=== PATIENT | male | born 1990 | race Caucasian/White ===

== ENCOUNTER 2021-12-30 15:09 | Inpatient (IN) | payer MEDICAID ==
[~2021-12-30] VITALS: Ht 188 cm; Wt 100.7 kg
[~2021-12-30 15:09] MED LIST: SERT-158 PO
[2021-12-30] MEDS ORDERED: SODIUM CHLORIDE 0.9% 1,000 ML IV ONE (16:30)
[2021-12-30] MEDS ORDERED: KETAMINE HCL 50 MG/ML 10 ML VIAL IVP ONE (16:30)
[2021-12-30 16:34] LABS: BASOPHILS % (AUTO) 0.5 % (0.0-2.0); EOSINOPHILS % (AUTO) 0.3 % (1.0-6.0); HEMATOCRIT 37.5 % (41-53); HEMOGLOBIN 12.4 g/dL (13.5-17.5); LYMPHOCYTES % (AUTO) 22.6 % (22.0-44.0); MEAN CORPUSCULAR HEMOGLOBIN 31.6 pg (26.0-34.0); MEAN CORPUSCULAR VOLUME 96 fL (80-100); MONOCYTES # (AUTO) 0.5 K/uL (0.1-1.0); MONOCYTES % (AUTO) 5.6 % (2.0-9.0); NEUTROPHILS # (AUTO) 6.3 K/uL (1.8-7.7); PLATELET COUNT (AUTO) 281 K/uL (150-450); RED BLOOD CELL COUNT(AUTO) 3.92 MIL/uL (4.50-5.90); RED CELL DISTRIBUTION WIDTH 15.1 % (11.5-14.5)
[2021-12-30 16:44] LABS: ANION GAP 11 mmol/L (8-16); CALCIUM, TOTAL 8.2 mg/dL (8.8-10.5); CARBON DIOXIDE 26 mmol/L (22-29); CHLORIDE 99 mmol/L (98-107); CREATININE 1.19 mg/dL (0.60-1.30); GLOMERULAR FILTR. RATE CALC > 60 mL/min (>60); GLUCOSE,RANDOM 145 mg/dL (70-110); POTASSIUM 3.8 mmol/L (3.5-5.1); SODIUM SERUM 136 mmol/L (136-145); UREA NITROGEN, BLOOD 8 mg/dL (7-18)
[2021-12-30 16:59] LABS: AMPHET/METH SCREEN,URINE NEGATIVE (NEGATIVE); BARBITURATE SCREEN, URINE POSITIVE (NEGATIVE); BENZODIAZEPINES SCREEN,URINE POSITIVE (NEGATIVE); CANNABINOID SCREEN,URINE NEGATIVE (NEGATIVE); COCAINE SCREEN,URINE NEGATIVE (NEGATIVE); METHADONE SCREEN, URINE NEGATIVE (NEGATIVE); OPIATE SCREEN,URINE NEGATIVE (NEGATIVE); PHENCYCLIDINE SCREEN,URINE NEGATIVE (NEGATIVE)
[2021-12-30 17:09] LABS: ALANINE AMINOTRANSFERASE 144 U/L (12-78); ALBUMIN 4.1 g/dL (3.4-5.0); ALKALINE PHOSPHATASE 76 U/L (46-116); ASPARTATE AMINOTRANSFERASE 101 U/L (15-37); BILIRUBIN,TOTAL 0.2 mg/dL (0.1-1.0); CREATINE KINASE, TOTAL ONLY 230 U/L (39-308); TOTAL PROTEIN, SERUM 8.3 g/dL (6.4-8.2)
[2021-12-30] MEDS ORDERED: ONDANSETRON HCL 4 MG/2 ML VIAL IVP PRN (21:15)
[2021-12-30] MEDS ORDERED: ACETAMINOPHEN 325 MG TABLET PO PRN (21:15)
[2021-12-30] MEDS ORDERED: LORazepam 2 MG/ML VIAL IVP ONE (21:15)
[2021-12-30] MEDS ORDERED: LORazepam 2 MG/ML VIAL IVP PRN (21:15)
[2021-12-30 21:40] LABS: COVID AG,FIA SOURCE NASOPHARYNGEAL
[2021-12-30] MEDS ORDERED: LORazepam 2 MG TABLET PO PRN (21:45)
[2021-12-30] MEDS: ONDANSETRON HCL 4 MG/2 ML VIAL IVP PRN (21:49)
[2021-12-30] MEDS: LORazepam 2 MG/ML VIAL IVP PRN (21:49)
[2021-12-30] MEDS: 1: MAGNESIUM SULFATE 2 GM, MVI, ADULT NO.1 WITH VIT K 10 ML, THIAMINE 100 MG, FOLIC ACID IV SCH ×5 (22:00)
[2021-12-31 00:01] VITALS: BP 124/55
[2021-12-31] MEDS: LORazepam 2 MG TABLET PO SCH ×2 (00:02→04:03)
[2021-12-31] MEDS: LORazepam 2 MG/ML VIAL IVP PRN ×5 (02:15→20:24)
[2021-12-31] MEDS ORDERED: DEXMEDETOMIDINE HCL 200 MCG in SODIUM CHLORIDE 0.9% 48 ML IV PRN (02:30)
[2021-12-31] MEDS ORDERED: DEXMEDETOMIDINE HCL 400 MCG in SODIUM CHLORIDE 0.9% 96 ML IV PRN (02:45)
[2021-12-31] MEDS: ETHYL ALCOHOL 62% ANTISEPTIC NASAL SANITIZER 0.6 ML AMPUL NASAL SCH ×2 (05:12→20:24)
[2021-12-31 07:17] LABS: BASOPHILS % (AUTO) 0.8 % (0.0-2.0); EOSINOPHILS % (AUTO) 1.5 % (1.0-6.0); HEMATOCRIT 32.5 % (41-53); HEMOGLOBIN 11.2 g/dL (13.5-17.5); LYMPHOCYTES # (AUTO) 1.2 K/uL (1.0-4.8); LYMPHOCYTES % (AUTO) 30.5 % (22.0-44.0); MEAN CORPUSCULAR HEMOGLOBIN 32.2 pg (26.0-34.0); MEAN CORPUSCULAR HGB CONC 34.4 G/dL (31.0-37.0); MEAN CORPUSCULAR VOLUME 94 fL (80-100); MONOCYTES # (AUTO) 0.4 K/uL (0.1-1.0); MONOCYTES % (AUTO) 8.9 % (2.0-9.0); NEUTROPHILS # (AUTO) 2.3 K/uL (1.8-7.7); NEUTROPHILS % (AUTO) 58.3 % (40.0-70.0); PLATELET COUNT (AUTO) 174 K/uL (150-450); RED BLOOD CELL COUNT(AUTO) 3.48 MIL/uL (4.50-5.90); RED CELL DISTRIBUTION WIDTH 14.9 % (11.5-14.5)
[2021-12-31 07:32] LABS: ALANINE AMINOTRANSFERASE 104 U/L (12-78); ALBUMIN 3.2 g/dL (3.4-5.0); ALKALINE PHOSPHATASE 59 U/L (46-116); ANION GAP 10 mmol/L (8-16); ASPARTATE AMINOTRANSFERASE 68 U/L (15-37); BILIRUBIN,TOTAL 0.3 mg/dL (0.1-1.0); CARBON DIOXIDE 27 mmol/L (22-29); CHLORIDE 101 mmol/L (98-107); GLOMERULAR FILTR. RATE CALC > 60 mL/min (>60); GLUCOSE,RANDOM 96 mg/dL (70-110); POTASSIUM 3.4 mmol/L (3.5-5.1); SODIUM SERUM 138 mmol/L (136-145); TOTAL PROTEIN, SERUM 6.7 g/dL (6.4-8.2); UREA NITROGEN, BLOOD 7 mg/dL (7-18)
[2021-12-31] MEDS: LORazepam 2 MG TABLET PO PRN ×2 (07:52→10:40)
[2021-12-31] MEDS ORDERED: SODIUM CHLORIDE 0.9% 1,000 ML ONE (08:20)
[2021-12-31] MEDS: ENOXAPARIN SODIUM 40 MG/0.4 ML PF SYRINGE SQ SCH (08:22)
[2021-12-31] MEDS: 1: MAGNESIUM SULFATE 2 GM, MVI, ADULT NO.1 WITH VIT K 10 ML, THIAMINE 100 MG, FOLIC ACID IV SCH ×10 (08:23→18:46)
[2021-12-31] MEDS: ONDANSETRON HCL 4 MG/2 ML VIAL IVP PRN (11:34)
[2021-12-31] MEDS: PANTOPRAZOLE SODIUM 40 MG DR TABLET PO SCH (11:57)
[2021-12-31] MEDS ORDERED: HALOPERIDOL LACTATE 5 MG/ML VIAL IVP PRN (12:00)
[2021-12-31] MEDS ORDERED: LORazepam 2 MG/ML VIAL IVP ONE (12:00)
[2021-12-31 15:51] VITALS: BP 110/45
[2021-12-31 20:02] VITALS: BP 109/63
[2021-12-31 23:53] VITALS: BP 105/54
[2022-01-01] MEDS: LORazepam 2 MG/ML VIAL IVP PRN ×5 (00:41→21:29)
[2022-01-01] MEDS ORDERED: SODIUM CHLORIDE 0.9% 1,000 ML ONE (03:49)
[2022-01-01 04:38] VITALS: BP 104/59
[2022-01-01] MEDS: 1: MAGNESIUM SULFATE 2 GM, MVI, ADULT NO.1 WITH VIT K 10 ML, THIAMINE 100 MG, FOLIC ACID IV SCH ×10 (06:07→15:09)
[2022-01-01] MEDS: PANTOPRAZOLE SODIUM 40 MG DR TABLET PO SCH (08:15)
[2022-01-01] MEDS: ETHYL ALCOHOL 62% ANTISEPTIC NASAL SANITIZER 0.6 ML AMPUL NASAL SCH ×2 (08:15→21:33)
[2022-01-01] MEDS: ENOXAPARIN SODIUM 40 MG/0.4 ML PF SYRINGE SQ SCH (08:15)
[2022-01-01] MEDS: ACETAMINOPHEN 325 MG TABLET PO PRN ×2 (08:15→22:05)
[2022-01-01 08:23] LABS: BASOPHILS % (AUTO) 0.6 % (0.0-2.0); EOSINOPHILS % (AUTO) 2.1 % (1.0-6.0); HEMATOCRIT 34.4 % (41-53); HEMOGLOBIN 11.6 g/dL (13.5-17.5); LYMPHOCYTES % (AUTO) 29.6 % (22.0-44.0); MEAN CORPUSCULAR HEMOGLOBIN 32.2 pg (26.0-34.0); MEAN CORPUSCULAR HGB CONC 33.7 G/dL (31.0-37.0); MEAN CORPUSCULAR VOLUME 95 fL (80-100); MONOCYTES # (AUTO) 0.4 K/uL (0.1-1.0); MONOCYTES % (AUTO) 10.3 % (2.0-9.0); NEUTROPHILS % (AUTO) 57.4 % (40.0-70.0); PLATELET COUNT (AUTO) 159 K/uL (150-450); RED CELL DISTRIBUTION WIDTH 15.2 % (11.5-14.5)
[2022-01-01 08:49] LABS: ALANINE AMINOTRANSFERASE 80 U/L (12-78); ALKALINE PHOSPHATASE 56 U/L (46-116); ANION GAP 8 mmol/L (8-16); ASPARTATE AMINOTRANSFERASE 42 U/L (15-37); BILIRUBIN,TOTAL 0.3 mg/dL (0.1-1.0); CALCIUM, TOTAL 8.1 mg/dL (8.8-10.5); CARBON DIOXIDE 28 mmol/L (22-29); CHLORIDE 102 mmol/L (98-107); CREATININE 0.71 mg/dL (0.60-1.30); GLOMERULAR FILTR. RATE CALC > 60 mL/min (>60); GLUCOSE,RANDOM 91 mg/dL (70-110); POTASSIUM 3.4 mmol/L (3.5-5.1); SODIUM SERUM 138 mmol/L (136-145); TOTAL PROTEIN, SERUM 6.4 g/dL (6.4-8.2); UREA NITROGEN, BLOOD 7 mg/dL (7-18)
[2022-01-01 09:34] VITALS: BP 138/77
[2022-01-01 12:27] VITALS: BP 126/58
[2022-01-01 16:54] VITALS: BP 111/53
[2022-01-01 20:19] VITALS: BP 107/52
[2022-01-01 23:18] VITALS: BP 103/60
[2022-01-02] MEDS ORDERED: SODIUM CHLORIDE 0.9% 1,000 ML ONE (00:37)
[2022-01-02] MEDS ORDERED: SODIUM CHLORIDE 0.9% 100 ML ONE (00:37)
[2022-01-02] MEDS: 1: MAGNESIUM SULFATE 2 GM, MVI, ADULT NO.1 WITH VIT K 10 ML, THIAMINE 100 MG, FOLIC ACID IV SCH ×5 (00:43)
[2022-01-02 03:38] VITALS: BP 108/55
[2022-01-02] MEDS ORDERED: LORazepam 1 MG TABLET PO PRN (07:00)
[2022-01-02] MEDS: ENOXAPARIN SODIUM 40 MG/0.4 ML PF SYRINGE SQ SCH (07:46)
[2022-01-02] MEDS: LORazepam 2 MG/ML VIAL IVP PRN (07:46)
[2022-01-02] MEDS: PANTOPRAZOLE SODIUM 40 MG DR TABLET PO SCH (07:46)
[2022-01-02] MEDS: ETHYL ALCOHOL 62% ANTISEPTIC NASAL SANITIZER 0.6 ML AMPUL NASAL SCH (07:46)
[2022-01-02] MEDS ORDERED: LORazepam 1 MG TABLET PO SCH (09:00)
[2022-01-02 10:21] VITALS: BP 123/72
[2022-01-03] MEDS ORDERED: LORazepam 1 MG TABLET PO PRN (07:00)
== END 2022-01-02 11:00 | disposition left against medical advice (07) | DRG 280 ==
LOC: EDBD 15:12 → EMS 15:12 → MERGE 21:16 → 5S 21:16 → ICU 12-31 02:45 → 5S 12-31 15:40
PROVIDERS: ADMIT Internal Medicine; ATTEND Internal Medicine
DX: K70.10 Alcoholic hepatitis without ascites (principal); F10.221 Alcohol dependence with intoxication delirium; F10.231 Alcohol dependence with withdrawal delirium; I10 Essential (primary) hypertension; Y90.8 Blood alcohol level of 240 mg/100 ml or more; Z20.822 Contact with and (suspected) exposure to COVID-19; Z53.29 Procedure and treatment not carried out because of patient's decision for other reasons
CPT/HCPCS: 51701; 70450; 80048; 80053; 80076; 82550; 83735; 85025; 87081; 99291; G0378; G0480; J1650; J2060; J2405; J3411; J3475; J3490; J7030; J7050; Q9967

== ENCOUNTER 2022-09-06 21:45 | Emergency (ER) | payer MEDICAID ==
[~2022-09-06] VITALS: Ht 188 cm; Wt 106.0 kg
[2022-09-06] MEDS: ChlordiazePOXIDE HCL 25 MG CAPSULE PO ONE ×2 (23:15→23:39)
[2022-09-06] MEDS ORDERED: LORazepam 2 MG/ML VIAL IVP ONE (23:15)
[2022-09-06] MEDS ORDERED: MAGNESIUM SULFATE 2 GM, MVI, ADULT NO.1 WITH VIT K 10 ML, THIAMINE 100 MG, FOLIC ACID 1... IV ONE ×5 (23:15)
[2022-09-06] MEDS ORDERED: DIAZEPAM 5 MG/ML 2 ML SYRINGE IM ONE (23:45)
[2022-09-06 23:51] LABS: ANION GAP 14 mmol/L (8-16); CARBON DIOXIDE 28 mmol/L (22-29); CHLORIDE 104 mmol/L (98-107); CREATININE 0.97 mg/dL (0.60-1.30); GLOMERULAR FILTR. RATE CALC > 60 mL/min (>60); GLUCOSE,RANDOM 101 mg/dL (70-110); POTASSIUM 4.2 mmol/L (3.5-5.1); SODIUM SERUM 146 mmol/L (136-145); UREA NITROGEN, BLOOD 9 mg/dL (7-18)
[2022-09-06 23:57] LABS: ALANINE AMINOTRANSFERASE 72 U/L (12-78); ALBUMIN 4.3 g/dL (3.4-5.0); ALKALINE PHOSPHATASE 73 U/L (46-116); ASPARTATE AMINOTRANSFERASE 58 U/L (15-37); BILIRUBIN,TOTAL 0.2 mg/dL (0.1-1.0); TOTAL PROTEIN, SERUM 8.5 g/dL (6.4-8.2)
[2022-09-07] MEDS ORDERED: ONDANSETRON HCL 4 MG/2 ML VIAL IVP ONE (02:00)
[2022-09-07] MEDS ORDERED: LIB25 PO (05:03)
[2022-09-07 06:06] VITALS: BP 101/97
== END 2022-09-07 07:18 | disposition home or self-care (01) ==
LOC: EMS 21:49
DX: F10.229 Alcohol dependence with intoxication, unspecified (principal); F32.A Depression, unspecified; I10 Essential (primary) hypertension; Y90.8 Blood alcohol level of 240 mg/100 ml or more
CPT/HCPCS: 99285; 80053; 83735; 36415; 93005; 96372; 96365; 96375; G0480; J1885; J3490 ×2; J3411; J3475; J7030; J2060; J2405

== ENCOUNTER 2023-08-18 12:46 | Inpatient (IN) | payer MEDICAID, OTHER ==
[~2023-08-18] VITALS: Ht 190.5 cm; Wt 105.2 kg
[2023-08-18] MEDS ORDERED: MIRT-149 PO (13:07)
[2023-08-18] MEDS ORDERED: HYDR-4808 PO (13:07)
[2023-08-18] MEDS ORDERED: GABA-1201 PO (13:07)
[2023-08-18] MEDS ORDERED: LORazepam 2 MG/ML VIAL IVP ONE (13:15)
[2023-08-18] MEDS ORDERED: SODIUM CHLORIDE 0.9% 1,000 ML IV ONE (13:15)
[2023-08-18] MEDS ORDERED: LevETIRAcetam 1,000 MG in DEXTROSE 5%-WATER 100 ML IV ONE (13:15)
[2023-08-18] MEDS ORDERED: ZOLPIDEM TARTRATE 10 MG TABLET PO PRN (13:45)
[2023-08-18 14:03] LABS: BASOPHILS % (AUTO) 0.5 % (0.0-2.0); EOSINOPHILS % (AUTO) 0.2 % (1.0-6.0); HEMATOCRIT 36.2 % (41-53); HEMOGLOBIN 12.3 g/dL (13.5-17.5); LYMPHOCYTES # (AUTO) 1.9 K/uL (1.0-4.8); LYMPHOCYTES % (AUTO) 49.7 % (22.0-44.0); MEAN CORPUSCULAR HGB CONC 33.9 G/dL (31.0-37.0); MEAN CORPUSCULAR VOLUME 89 fL (80-100); MONOCYTES # (AUTO) 0.2 K/uL (0.1-1.0); MONOCYTES % (AUTO) 6.6 % (2.0-9.0); NEUTROPHILS # (AUTO) 1.6 K/uL (1.8-7.7); PLATELET COUNT (AUTO) 317 K/uL (150-450); RED BLOOD CELL COUNT(AUTO) 4.09 MIL/uL (4.50-5.90); RED CELL DISTRIBUTION WIDTH 18.5 % (11.5-14.5); WHITE BLOOD COUNT (AUTO) 3.7 K/uL (4.5-11.0)
[2023-08-18 14:13] LABS: ANION GAP 8 mmol/L (8-16); CARBON DIOXIDE 31 mmol/L (22-29); CHLORIDE 100 mmol/L (98-107); CREATININE 0.91 mg/dL (0.60-1.30); GLOMERULAR FILTR. RATE CALC > 60 mL/min (>60); GLUCOSE,RANDOM 110 mg/dL (70-110); POTASSIUM 3.5 mmol/L (3.5-5.1); SODIUM SERUM 139 mmol/L (136-145); UREA NITROGEN, BLOOD 9 mg/dL (7-18)
[2023-08-18 14:18] LABS: ALCOHOL, BLOOD (SERUM) 348 mg/dL (0-10)
[2023-08-18 14:19] LABS: APPEARANCE,URINE CLEAR (CLEAR); BILIRUBIN,URINE NEGATIVE (NEGATIVE); COLOR,URINE COLORLESS (YELLOW); GLUCOSE, URINE (UA) NEGATIVE (NEGATIVE); KETONES,URINE NEGATIVE (NEGATIVE); LEUKOCYTE ESTERASE ,URINE NEGATIVE (NEGATIVE); NITRATE,URINE NEGATIVE (NEGATIVE); OCCULT BLOOD,URINE NEGATIVE (NEGATIVE); PROTEIN,URINE NEGATIVE (NEGATIVE); SPECIFIC GRAVITIY, URINE 1.004 (1.003-1.030); UROBILINOGEN,URINE <=1.0 mg/dL (<=1.0)
[2023-08-18 14:24] LABS: COVID AG,FIA SOURCE NASAL SWAB
[2023-08-18 14:28] LABS: LACTIC ACID 1.8 mmol/L (0.4-2.0)
[2023-08-18 14:37] LABS: ALANINE AMINOTRANSFERASE 34 U/L (12-78); ALBUMIN 3.9 g/dL (3.4-5.0); ALKALINE PHOSPHATASE 65 U/L (46-116); ASPARTATE AMINOTRANSFERASE 33 U/L (15-37); BILIRUBIN,TOTAL 0.4 mg/dL (0.1-1.0); CREATINE KINASE, TOTAL ONLY 235 U/L (39-308); TOTAL PROTEIN, SERUM 8.3 g/dL (6.4-8.2)
[2023-08-18 14:43] LABS: SARS-COV2 (COVID) ANTIGEN,FIA Negative (Negative)
[2023-08-18] MEDS: LORazepam 2 MG TABLET PO PRN (16:23)
[2023-08-18] MEDS ORDERED: SODIUM CHLORIDE 0.9% 2,000 ML IV ONE (17:15)
[2023-08-18] MEDS: HALOPERIDOL 5 MG TABLET PO PRN (17:57)
[2023-08-18] MEDS ORDERED: HALOPERIDOL LACTATE 5 MG/ML VIAL IM ONE (18:15)
[2023-08-18] MEDS ORDERED: LORazepam 2 MG/ML VIAL IM ONE (18:15)
[2023-08-18] MEDS ORDERED: DiphenhydrAMINE HCL 50 MG/ML VIAL IM ONE (18:15)
[2023-08-18 18:33] LABS: AMPHET/METH SCREEN,URINE NEGATIVE (NEGATIVE); BARBITURATE SCREEN, URINE POSITIVE (NEGATIVE); BENZODIAZEPINES SCREEN,URINE NEGATIVE (NEGATIVE); CANNABINOID SCREEN,URINE NEGATIVE (NEGATIVE); COCAINE SCREEN,URINE NEGATIVE (NEGATIVE); METHADONE SCREEN, URINE NEGATIVE (NEGATIVE); OPIATE SCREEN,URINE NEGATIVE (NEGATIVE); PHENCYCLIDINE SCREEN,URINE NEGATIVE (NEGATIVE)
[2023-08-18 18:44] LABS: ALCOHOL, URINE DRUG SCREEN POSITIVE (NEGATIVE)
[2023-08-19 00:15] VITALS: BP 125/76; PULSE 83; RESP 18; TEMP 98.2
[2023-08-19 01:21] VITALS: BP 125/76; PULSE 83; RESP 18; TEMP 98.2; O2SAT 99
[2023-08-19] MEDS ORDERED: OMEPRAZOLE 20 MG CAPSULE PO PRN (07:00)
[2023-08-19] MEDS ORDERED: MAGNESIUM HYDROXIDE SUSPENSION 30 ML UDCUP PO PRN (07:00)
[2023-08-19] MEDS ORDERED: CloNIDine HCL 0.1 MG TABLET PO PRN (07:00)
[2023-08-19] MEDS ORDERED: BACITRACIN 28 GM OINTMENT TP PRN (07:00)
[2023-08-19] MEDS ORDERED: IBUPROFEN 600 MG TABLET PO PRN (07:00)
[2023-08-19] MEDS ORDERED: MAG HYDROX/ALUMINUM HYD/SIMETH ES 30 ML SUSPENSION UDCUP PO PRN (07:00)
[2023-08-19] MEDS ORDERED: ONDANSETRON HCL 4 MG TABLET PO PRN (07:00)
[2023-08-19] MEDS ORDERED: BENZOCAINE/MENTHOL LOZENGE PO PRN (07:00)
[2023-08-19] MEDS ORDERED: ACETAMINOPHEN 325 MG TABLET PO PRN (07:00)
[2023-08-19] MEDS ORDERED: PETROLATUM,WHITE 28 GM JELLY TP PRN (07:00)
[2023-08-19] MEDS ORDERED: LOPERAMIDE HCL 2 MG CAPSULE PO PRN (07:00)
[2023-08-19] MEDS ORDERED: DOCUSATE SODIUM 100 MG CAPSULE PO PRN (07:00)
[2023-08-19] MEDS ORDERED: ALBUTEROL SULFATE HFA 90 MCG/PUFF 8 GM INHALER IH PRN (07:00)
[2023-08-19] MEDS: GABAPENTIN 400 MG CAPSULE PO SCH ×2 (08:43→16:56)
[2023-08-19] MEDS: LevETIRAcetam 500 MG TABLET PO SCH ×2 (08:43→16:56)
[2023-08-19 09:44] VITALS: BP 133/74; PULSE 70; RESP 18; TEMP 98.5; O2SAT 100
[2023-08-19] MEDS: CITALOPRAM HYDROBROMIDE 20 MG TABLET PO SCH (11:03)
[2023-08-19] MEDS: LORazepam 2 MG TABLET PO PRN ×2 (11:04→15:12)
[2023-08-19] MEDS: HALOPERIDOL 5 MG TABLET PO PRN (17:37)
[2023-08-19] MEDS ORDERED: LORazepam 2 MG/ML VIAL IM ONE (19:00)
[2023-08-19] MEDS ORDERED: HALOPERIDOL LACTATE 5 MG/ML VIAL IM ONE (19:00)
[2023-08-19 19:15] VITALS: RESP 18
[2023-08-19 20:00] VITALS: RESP 18
[2023-08-19] MEDS: OLANZapine 5 MG TABLET PO SCH (21:00)
[2023-08-19 21:16] VITALS: TEMP 97.7
[2023-08-20] MEDS: HALOPERIDOL 5 MG TABLET PO PRN ×2 (07:55→13:57)
[2023-08-20] MEDS: LORazepam 2 MG TABLET PO PRN ×2 (07:55→13:57)
[2023-08-20] MEDS: LevETIRAcetam 500 MG TABLET PO SCH ×2 (07:55→16:18)
[2023-08-20] MEDS: GABAPENTIN 400 MG CAPSULE PO SCH ×2 (07:56→16:18)
[2023-08-20] MEDS: CITALOPRAM HYDROBROMIDE 20 MG TABLET PO SCH (07:56)
[2023-08-20 08:00] VITALS: BP 119/69; PULSE 63; RESP 18; TEMP 98.2
[2023-08-20 09:30] VITALS: BP 119/69; PULSE 63; RESP 17; TEMP 98.2
[2023-08-20] MEDS ORDERED: LORazepam 2 MG/ML VIAL IM ONE ×3 (09:30→19:00)
[2023-08-20] MEDS ORDERED: DiphenhydrAMINE HCL 50 MG/ML VIAL IM ONE (09:30)
[2023-08-20] MEDS ORDERED: HALOPERIDOL LACTATE 5 MG/ML VIAL IM ONE ×3 (09:30→19:00)
[2023-08-20 10:30] VITALS: BP 121/76; PULSE 71; RESP 17; TEMP 98
[2023-08-20 15:08] VITALS: BP 110/46; PULSE 69; RESP 18
[2023-08-20] MEDS: OLANZapine 5 MG TABLET PO SCH (20:18)
[2023-08-20 21:23] VITALS: BP 136/89; PULSE 95; RESP 18; TEMP 98.1
[2023-08-21] MEDS: LevETIRAcetam 500 MG TABLET PO SCH ×3 (08:25→16:12)
[2023-08-21] MEDS: CITALOPRAM HYDROBROMIDE 20 MG TABLET PO SCH (08:25)
[2023-08-21] MEDS: GABAPENTIN 400 MG CAPSULE PO SCH ×3 (08:25→16:12)
[2023-08-21] MEDS: LORazepam 2 MG TABLET PO PRN (08:25)
[2023-08-21] MEDS: HALOPERIDOL 5 MG TABLET PO PRN (08:25)
[2023-08-21 09:55] VITALS: BP 123/64; PULSE 71; RESP 19; TEMP 98.2
[2023-08-21] MEDS ORDERED: CITA-144 PO (14:23)
[2023-08-21] MEDS ORDERED: LEVE500T20 PO (14:23)
== END 2023-08-21 16:10 | disposition home or self-care (01) | DRG 750 ==
LOC: EMS 12:47 → UNDOADMIN 08-19 00:03 → 3EI 08-19 00:03
PROVIDERS: ADMIT Psychiatry & Neurology Psychiatry; ATTEND Psychiatry & Neurology Psychiatry
DX: F25.9 Schizoaffective disorder, unspecified (principal); G40.909 Epilepsy, unspecified, not intractable, without status epilepticus; F10.139 Alcohol abuse with withdrawal, unspecified; F41.9 Anxiety disorder, unspecified; G47.00 Insomnia, unspecified; F11.10 Opioid abuse, uncomplicated; Z20.822 Contact with and (suspected) exposure to COVID-19; I10 Essential (primary) hypertension; K59.00 Constipation, unspecified; T14.91XA Suicide attempt, initial encounter; X83.8XXA Intentional self-harm by other specified means, initial encounter; Y93.89 Activity, other specified; Y92.89 Other specified places as the place of occurrence of the external cause; Y99.8 Other external cause status; Z72.0 Tobacco use
CPT/HCPCS: 71045; 80053; 80307; 81003; 82550; 83605; 85025; 93005; 99291; G0480; J0712; J1200; J1630; J2060; J7030; J7060; Q0162; 36415-L1; 36415-TC

== ENCOUNTER 2023-09-08 15:09 | Inpatient (IN) | payer MEDICAID, OTHER ==
[~2023-09-08] VITALS: Ht 185.4 cm; Wt 106.3 kg
[~2023-09-08 15:09] MED LIST changes: +CITA-144 PO; +GABA-1201 PO; +LEVE500T20 PO; -SERT-158 PO
[2023-09-08 15:48] LABS: EOSINOPHILS % (AUTO) 1.1 % (1.0-6.0); HEMATOCRIT 38.6 % (41-53); LYMPHOCYTES # (AUTO) 2.1 K/uL (1.0-4.8); LYMPHOCYTES % (AUTO) 55.5 % (22.0-44.0); MEAN CORPUSCULAR HEMOGLOBIN 29.9 pg (26.0-34.0); MEAN CORPUSCULAR HGB CONC 33.7 G/dL (31.0-37.0); MEAN CORPUSCULAR VOLUME 89 fL (80-100); MONOCYTES # (AUTO) 0.2 K/uL (0.1-1.0); MONOCYTES % (AUTO) 6.4 % (2.0-9.0); NEUTROPHILS # (AUTO) 1.4 K/uL (1.8-7.7); PLATELET COUNT (AUTO) 248 K/uL (150-450); RED BLOOD CELL COUNT(AUTO) 4.34 MIL/uL (4.50-5.90); RED CELL DISTRIBUTION WIDTH 18.5 % (11.5-14.5); WHITE BLOOD COUNT (AUTO) 3.9 K/uL (4.5-11.0)
[2023-09-08 16:03] LABS: ALCOHOL, BLOOD (SERUM) 448 mg/dL (0-10); ANION GAP 10 mmol/L (8-16); CALCIUM, TOTAL 8.7 mg/dL (8.8-10.5); CARBON DIOXIDE 30 mmol/L (22-29); CHLORIDE 101 mmol/L (98-107); CREATININE 0.94 mg/dL (0.60-1.30); GLOMERULAR FILTR. RATE CALC > 60 mL/min (>60); GLUCOSE,RANDOM 122 mg/dL (70-110); POTASSIUM 3.4 mmol/L (3.5-5.1); SODIUM SERUM 141 mmol/L (136-145); UREA NITROGEN, BLOOD 9 mg/dL (7-18)
[2023-09-08 16:10] LABS: ALANINE AMINOTRANSFERASE 31 U/L (12-78); ALBUMIN 4.2 g/dL (3.4-5.0); ALKALINE PHOSPHATASE 62 U/L (46-116); ASPARTATE AMINOTRANSFERASE 29 U/L (15-37); BILIRUBIN,TOTAL 0.3 mg/dL (0.1-1.0); TOTAL PROTEIN, SERUM 8.8 g/dL (6.4-8.2)
[2023-09-08] MEDS: ChlordiazePOXIDE HCL 25 MG CAPSULE PO ONE ×2 (18:30→19:23)
[2023-09-08] MEDS ORDERED: HALOPERIDOL 5 MG TABLET PO PRN (18:45)
[2023-09-08] MEDS ORDERED: ZOLPIDEM TARTRATE 10 MG TABLET PO PRN (18:45)
[2023-09-08] MEDS ORDERED: LORazepam 2 MG/ML VIAL IM ONE (20:00)
[2023-09-08] MEDS ORDERED: DiphenhydrAMINE HCL 50 MG/ML VIAL IM ONE (20:00)
[2023-09-08] MEDS ORDERED: HALOPERIDOL LACTATE 5 MG/ML VIAL IM ONE (20:00)
[2023-09-08] MEDS ORDERED: LevETIRAcetam 500 MG TABLET PO ONE (20:30)
[2023-09-08] MEDS ORDERED: POTASSIUM CHLORIDE 10% 40 MEQ/30 ML LIQUID UDCUP PO ONE (22:00)
[2023-09-09] MEDS: LORazepam 2 MG TABLET PO PRN ×3 (04:09→18:41)
[2023-09-09 04:14] LABS: COVID AG,FIA SOURCE NASAL SWAB
[2023-09-09 04:21] LABS: SARS-COV2 (COVID) ANTIGEN,FIA Negative (Negative)
[2023-09-09] MEDS ORDERED: LevETIRAcetam 500 MG TABLET PO ONE (09:00)
[2023-09-09 11:37] VITALS: BP 139/85; PULSE 100; RESP 18; TEMP 97.8; O2SAT 98
[2023-09-09] MEDS ORDERED: INFLUENZA VIRUS VACCINE QVS 2023-24 (6MO+)/PF 60 MCG/0.5 ML SYRINGE IM. ONE (12:15)
[2023-09-09] MEDS ORDERED: PNEUMOCOCCAL VACCINE POLYVALENT 0.5 ML SYRINGE [PPSV23] IM. ONE (12:15)
[2023-09-09] MEDS: CITALOPRAM HYDROBROMIDE 20 MG TABLET PO SCH (13:01)
[2023-09-09] MEDS ORDERED: ACETAMINOPHEN 325 MG TABLET PO PRN (14:00)
[2023-09-09] MEDS ORDERED: ONDANSETRON HCL 4 MG TABLET PO PRN (14:00)
[2023-09-09] MEDS ORDERED: MAGNESIUM HYDROXIDE SUSPENSION 30 ML UDCUP PO PRN (14:00)
[2023-09-09] MEDS ORDERED: BENZOCAINE/MENTHOL LOZENGE PO PRN (14:00)
[2023-09-09] MEDS ORDERED: DOCUSATE SODIUM 100 MG CAPSULE PO PRN (14:00)
[2023-09-09] MEDS ORDERED: ALBUTEROL SULFATE HFA 90 MCG/PUFF 8 GM INHALER IH PRN (14:00)
[2023-09-09] MEDS ORDERED: PETROLATUM,WHITE 28 GM JELLY TP PRN (14:00)
[2023-09-09] MEDS ORDERED: OMEPRAZOLE 20 MG CAPSULE PO PRN (14:00)
[2023-09-09] MEDS ORDERED: LOPERAMIDE HCL 2 MG CAPSULE PO PRN (14:00)
[2023-09-09] MEDS ORDERED: IBUPROFEN 600 MG TABLET PO PRN (14:00)
[2023-09-09] MEDS ORDERED: CloNIDine HCL 0.1 MG TABLET PO PRN (14:00)
[2023-09-09] MEDS ORDERED: MAG HYDROX/ALUMINUM HYD/SIMETH ES 30 ML SUSPENSION UDCUP PO PRN (14:00)
[2023-09-09] MEDS ORDERED: BACITRACIN 28 GM OINTMENT TP PRN (14:00)
[2023-09-09] MEDS: GABAPENTIN 400 MG CAPSULE PO SCH (17:25)
[2023-09-09] MEDS: LevETIRAcetam 500 MG TABLET PO SCH (17:26)
[2023-09-09] MEDS ORDERED: OLANZapine 5 MG TABLET PO SCH (21:00)
[2023-09-09 21:23] VITALS: TEMP 97
[2023-09-10] MEDS: CITALOPRAM HYDROBROMIDE 20 MG TABLET PO SCH (08:41)
[2023-09-10] MEDS: LevETIRAcetam 500 MG TABLET PO SCH (08:41)
[2023-09-10] MEDS: GABAPENTIN 400 MG CAPSULE PO SCH (08:42)
[2023-09-10 08:49] VITALS: BP 107/67; PULSE 102; RESP 18; TEMP 98.2; O2SAT 99
[2023-09-10] MEDS: LORazepam 2 MG TABLET PO PRN ×2 (08:50→12:51)
[2023-09-10] MEDS ORDERED: OLAN5TAB52 PO (14:09)
== END 2023-09-10 14:45 | disposition home or self-care (01) | DRG 754 ==
LOC: EMS 15:25 → 3EC 09-09 00:38
PROVIDERS: ADMIT Psychiatry & Neurology Psychiatry; ATTEND Psychiatry & Neurology Psychiatry
DX: F32.9 Major depressive disorder, single episode, unspecified (principal); G40.909 Epilepsy, unspecified, not intractable, without status epilepticus; K74.60 Unspecified cirrhosis of liver; R45.851 Suicidal ideations; F10.229 Alcohol dependence with intoxication, unspecified; G47.00 Insomnia, unspecified; F41.9 Anxiety disorder, unspecified; Z20.822 Contact with and (suspected) exposure to COVID-19; K59.00 Constipation, unspecified; I10 Essential (primary) hypertension; E87.6 Hypokalemia; Z79.899 Other long term (current) drug therapy
CPT/HCPCS: 80053; 85025; 99285; G0480; J1200; J1630; J2060

== ENCOUNTER 2023-10-18 01:58 | Emergency (ER) | payer MEDICAID, OTHER ==
[~2023-10-18] VITALS: Ht 188 cm; Wt 105.0 kg
[~2023-10-18 01:58] MED LIST changes: +OLAN5TAB52 PO
[2023-10-18 02:01] VITALS: BP 118/73; PULSE 100; RESP 16; TEMP 98.2
== END 2023-10-18 05:59 | disposition left against medical advice (07) ==
LOC: EMS 01:59
DX: Z53.21 Procedure and treatment not carried out due to patient leaving prior to being seen by health care provider (principal)
CPT/HCPCS: 99281; Z7502

== ENCOUNTER 2024-11-17 13:21 | Inpatient (IN) | payer OTHER ==
[~2024-11-17] VITALS: Ht 190.5 cm; Wt 109.1 kg
[~2024-11-17 13:21] MED LIST changes: +LEVE-71 PO; -LEVE500T20 PO
[2024-11-17] MEDS ORDERED: ACETAMINOPHEN 325 MG TABLET PO PRN (15:15)
[2024-11-17] MEDS ORDERED: MAGNESIUM HYDROXIDE SUSPENSION 30 ML UDCUP PO PRN (15:15)
[2024-11-17] MEDS: ChlordiazePOXIDE HCL 25 MG CAPSULE PO ONE (15:26)
[2024-11-17] MEDS ORDERED: LORazepam 2 MG/ML VIAL IVP PRN (15:30)
[2024-11-17 15:50] LABS: ANION GAP 4 mmol/L (8-16); CALCIUM, TOTAL 8.2 mg/dL (8.8-10.5); CARBON DIOXIDE 31 mmol/L (22-29); CHLORIDE 105 mmol/L (98-107); CREATININE 0.85 mg/dL (0.60-1.30); GLOMERULAR FILTR. RATE CALC > 60 mL/min (>60); GLUCOSE,RANDOM 112 mg/dL (70-110); SODIUM SERUM 140 mmol/L (136-145); UREA NITROGEN, BLOOD 12 mg/dL (7-18)
[2024-11-17 15:53] LABS: ALCOHOL, BLOOD (SERUM) 240 mg/dL (0-10)
[2024-11-17 15:56] LABS: ALANINE AMINOTRANSFERASE 33 U/L (12-78); ALBUMIN 3.4 g/dL (3.4-5.0); ALKALINE PHOSPHATASE 58 U/L (46-116); ASPARTATE AMINOTRANSFERASE 22 U/L (15-37); BILIRUBIN,TOTAL 0.2 mg/dL (0.1-1.0); LIPASE 37 U/L (16-77); TOTAL PROTEIN, SERUM 7.5 g/dL (6.4-8.2)
[2024-11-17] MEDS: LevETIRAcetam 1,000 MG in DEXTROSE 5%-WATER 100 ML IV ONE (15:58)
[2024-11-17] MEDS: ONDANSETRON HCL 4 MG/2 ML VIAL IVP ONE (15:58)
[2024-11-17] MEDS: 1: MAGNESIUM SULFATE 2 GM, MVI, ADULT NO.1 WITH VIT K 10 ML, THIAMINE 100 MG, FOLIC ACID IV SCH (16:00)
[2024-11-17 16:10] LABS: BASOPHILS % (AUTO) 0.4 % (0.0-2.0); EOSINOPHILS % (AUTO) 0.2 % (1.0-6.0); HEMATOCRIT 42.9 % (41-53); HEMOGLOBIN 14.1 g/dL (13.5-17.5); LYMPHOCYTES # (AUTO) 1.6 K/uL (1.0-4.8); LYMPHOCYTES % (AUTO) 26.9 % (22.0-44.0); MEAN CORPUSCULAR HEMOGLOBIN 30.4 pg (26.0-34.0); MEAN CORPUSCULAR HGB CONC 32.8 G/dL (31.0-37.0); MEAN CORPUSCULAR VOLUME 93 fL (80-100); MONOCYTES # (AUTO) 0.4 K/uL (0.1-1.0); MONOCYTES % (AUTO) 6.1 % (2.0-9.0); NEUTROPHILS % (AUTO) 66.4 % (40.0-70.0); PLATELET COUNT (AUTO) 360 K/uL (150-450); RED BLOOD CELL COUNT(AUTO) 4.63 MIL/uL (4.50-5.90); RED CELL DISTRIBUTION WIDTH 16.3 % (11.5-14.5)
[2024-11-17 17:47] VITALS: BP 106/69; PULSE 95; RESP 18; TEMP 97.9; O2SAT 96
[2024-11-17 20:30] VITALS: BP_SYST 136; BP_SYST 98; BP_DIAS 71; BP_DIAS 80; PULSE 85; PULSE 93; RESP 18; TEMP 99; TEMP 99.1; O2SAT 95; O2SAT 97
[2024-11-17] MEDS: LevETIRAcetam 500 MG TABLET PO SCH (21:46)
[2024-11-17] MEDS: ChlordiazePOXIDE HCL 25 MG CAPSULE PO SCH (21:46)
[2024-11-17 22:05] LABS: APPEARANCE,URINE CLEAR (CLEAR); BILIRUBIN,URINE NEGATIVE (NEGATIVE); COLOR,URINE LIGHT YELLOW (YELLOW); GLUCOSE, URINE (UA) NEGATIVE (NEGATIVE); KETONES,URINE NEGATIVE (NEGATIVE); LEUKOCYTE ESTERASE ,URINE NEGATIVE (NEGATIVE); NITRATE,URINE NEGATIVE (NEGATIVE); OCCULT BLOOD,URINE NEGATIVE (NEGATIVE); PROTEIN,URINE TRACE mg/dL (NEGATIVE); SPECIFIC GRAVITIY, URINE 1.021 (1.003-1.030); UROBILINOGEN,URINE <=1.0 mg/dL (<=1.0)
[2024-11-18] MEDS ORDERED: SODIUM CHLORIDE 0.9% 1,000 ML ONE (05:26)
[2024-11-18 05:58] VITALS: BP 99/54; PULSE 83; RESP 18; TEMP 98.6; O2SAT 97
[2024-11-18] MEDS: LORazepam 2 MG/ML VIAL IVP PRN (06:17)
[2024-11-18 08:12] VITALS: BP 98/60; PULSE 72; RESP 18; TEMP 98; O2SAT 98
[2024-11-18] MEDS: PANTOPRAZOLE SODIUM 40 MG/VIAL IVP SCH (08:20)
[2024-11-18] MEDS: ONDANSETRON HCL 4 MG/2 ML VIAL IVP PRN (11:27)
[2024-11-18 15:38] VITALS: BP 110/61; PULSE 70; RESP 20; TEMP 98.4; O2SAT 100
[2024-11-18 19:45] VITALS: BP 106/62; PULSE 72; RESP 18; TEMP 98.2; O2SAT 97
[2024-11-19 04:33] VITALS: BP 109/69; PULSE 79; RESP 18; TEMP 97.9; O2SAT 98
[2024-11-19 07:30] VITALS: BP 113/45; PULSE 66; RESP 18; TEMP 98.1; O2SAT 100
[2024-11-19] MEDS ORDERED: SODIUM CHLORIDE 0.9% 1,000 ML ONE (07:58)
== END 2024-11-19 10:56 | disposition left against medical advice (07) | DRG 53 ==
LOC: EMS 13:21 → EDH 15:13 → 6S 17:14
PROVIDERS: ADMIT Internal Medicine; ATTEND Internal Medicine
DX: G40.909 Epilepsy, unspecified, not intractable, without status epilepticus (principal); E66.9 Obesity, unspecified; F10.239 Alcohol dependence with withdrawal, unspecified; F10.229 Alcohol dependence with intoxication, unspecified; I10 Essential (primary) hypertension; F43.10 Post-traumatic stress disorder, unspecified; Y90.8 Blood alcohol level of 240 mg/100 ml or more; F32.A Depression, unspecified; Z53.29 Procedure and treatment not carried out because of patient's decision for other reasons; Z91.199 Patient's noncompliance with other medical treatment and regimen due to unspecified reason; Z68.30 Body mass index [BMI] 30.0-30.9, adult
CPT/HCPCS: 80048; 80076; 81003; 83690; 83735; 85025; 99285; G0480; J0712; J2060; J2405; J2470; J3411; J3475; J3490; J7030; J7060

== ENCOUNTER 2024-12-23 14:35 | Inpatient (IN) | payer MEDICAID, OTHER ==
[~2024-12-23] VITALS: Ht 185.4 cm; Wt 113.0 kg
[2024-12-23] MEDS: ONDANSETRON HCL 4 MG/2 ML VIAL IVP ONE (16:06)
[2024-12-23] MEDS: LORazepam 2 MG/ML VIAL IVP ONE ×2 (16:06→18:15)
[2024-12-23] MEDS: FAMOTIDINE 20 MG/2 ML VIAL IVP ONE (16:06)
[2024-12-23] MEDS: SODIUM CHLORIDE 0.9% 1,000 ML IV ONE (16:06)
[2024-12-23] MEDS: LevETIRAcetam 1,000 MG in DEXTROSE 5%-WATER 100 ML IV ONE (16:07)
[2024-12-23 16:15] LABS: BASOPHILS % (AUTO) 0.6 % (0.0-2.0); EOSINOPHILS % (AUTO) 1.3 % (1.0-6.0); HEMATOCRIT 39.9 % (41-53); HEMOGLOBIN 13.4 g/dL (13.5-17.5); LYMPHOCYTES # (AUTO) 1.8 K/uL (1.0-4.8); LYMPHOCYTES % (AUTO) 31.2 % (22.0-44.0); MEAN CORPUSCULAR HGB CONC 33.6 G/dL (31.0-37.0); MEAN CORPUSCULAR VOLUME 92 fL (80-100); MONOCYTES # (AUTO) 0.2 K/uL (0.1-1.0); MONOCYTES % (AUTO) 3.9 % (2.0-9.0); NEUTROPHILS # (AUTO) 3.6 K/uL (1.8-7.7); PLATELET COUNT (AUTO) 286 K/uL (150-450); RED BLOOD CELL COUNT(AUTO) 4.33 MIL/uL (4.50-5.90); RED CELL DISTRIBUTION WIDTH 16.5 % (11.5-14.5); WHITE BLOOD COUNT (AUTO) 5.7 K/uL (4.5-11.0)
[2024-12-23] MEDS: MORPHINE SULFATE 2 MG/ML SYRINGE IVP ONE (16:18)
[2024-12-23 16:25] LABS: ANION GAP 14 mmol/L (8-16); CALCIUM, TOTAL 8.8 mg/dL (8.8-10.5); CARBON DIOXIDE 28 mmol/L (22-29); CHLORIDE 101 mmol/L (98-107); CREATININE 0.75 mg/dL (0.60-1.30); GLOMERULAR FILTR. RATE CALC > 60 mL/min (>60); GLUCOSE,RANDOM 107 mg/dL (70-110); POTASSIUM 3.7 mmol/L (3.5-5.1); SODIUM SERUM 143 mmol/L (136-145); UREA NITROGEN, BLOOD 3 mg/dL (7-18)
[2024-12-23 16:31] LABS: ALBUMIN 3.9 g/dL (3.4-5.0); BILIRUBIN,DIRECT 0.1 mg/dL (0.00-0.20); BILIRUBIN,TOTAL 0.2 mg/dL (0.1-1.0); TOTAL PROTEIN, SERUM 8.5 g/dL (6.4-8.2)
[2024-12-23 16:34] LABS: B-TYPE NATRIURETIC PEPTIDE < 5 pg/mL (0-100); CREATINE KINASE, TOTAL ONLY 372 U/L (39-308); LIPASE 33 U/L (16-77); TROPONIN I-HIGH SENSITIVITY 4 ng/L (<76)
[2024-12-23] MEDS ORDERED: IOHEXOL 350 MG/ML 100 ML VIAL ONE (16:48)
[2024-12-23] MEDS ORDERED: SODIUM CHLORIDE 0.9% 0 ML ONE (16:48)
[2024-12-23] MEDS ORDERED: 0.9% SODIUM CHLORIDE 10 ML SYRINGE IVP ONE (16:49)
[2024-12-23 16:59] LABS: APPEARANCE,URINE CLEAR (CLEAR); BILIRUBIN,URINE NEGATIVE (NEGATIVE); COLOR,URINE LIGHT YELLOW (YELLOW); GLUCOSE, URINE (UA) NEGATIVE (NEGATIVE); LEUKOCYTE ESTERASE ,URINE NEGATIVE (NEGATIVE); NITRATE,URINE NEGATIVE (NEGATIVE); OCCULT BLOOD,URINE TRACE (NEGATIVE); PH,URINE 5.5 (5.0-8.0); PH,URINE DRUG SCREEN 5.5 (5.0-8.0); PROTEIN,URINE TRACE mg/dL (NEGATIVE); SPECIFIC GRAVITIY, URINE 1.012 (1.003-1.030); UROBILINOGEN,URINE <=1.0 mg/dL (<=1.0)
[2024-12-23 17:06] LABS: AMPHET/METH SCREEN,URINE NEGATIVE (NEGATIVE); BARBITURATE SCREEN, URINE POSITIVE (NEGATIVE); BENZODIAZEPINES SCREEN,URINE POSITIVE (NEGATIVE); CANNABINOID SCREEN,URINE NEGATIVE (NEGATIVE); COCAINE SCREEN,URINE NEGATIVE (NEGATIVE); METHADONE SCREEN, URINE NEGATIVE (NEGATIVE); OPIATE SCREEN,URINE POSITIVE (NEGATIVE); PHENCYCLIDINE SCREEN,URINE NEGATIVE (NEGATIVE)
[2024-12-23 17:20] LABS: ALCOHOL, URINE DRUG SCREEN POSITIVE (NEGATIVE)
[2024-12-23 17:38] LABS: BACTERIA,URINE Rare /HPF (None Seen); RBC,URINE 0-2 /HPF (0-2); WBC,URINE 0-2 /HPF (0-5)
[2024-12-23] MEDS: KETOROLAC TROMETHAMINE 30 MG/ML VIAL IVP ONE (18:15)
[2024-12-23] MEDS ORDERED: BISACODYL 10 MG RECTAL RECTAL SUPPOSITORY PR PRN ×2 (18:45→19:00)
[2024-12-23] MEDS ORDERED: MAGNESIUM HYDROXIDE SUSPENSION 30 ML UDCUP PO PRN ×2 (18:45→19:00)
[2024-12-23] MEDS ORDERED: ALBUTEROL SULFATE 2.5 MG/0.5 ML NEB SOLUTION NEB PRN ×2 (18:45→19:00)
[2024-12-23] MEDS ORDERED: HYDROCODONE/ACETAMINOPHEN 5-325 MG TABLET PO PRN ×2 (18:45→19:00)
[2024-12-23] MEDS ORDERED: IPRATROPIUM BROMIDE 0.5 MG/2.5 ML NEB SOLUTION NEB PRN ×2 (18:45→19:00)
[2024-12-23] MEDS ORDERED: MORPHINE SULFATE 2 MG/ML SYRINGE IVP PRN ×2 (18:45→19:00)
[2024-12-23] MEDS ORDERED: ACETAMINOPHEN 325 MG TABLET PO PRN (18:45)
[2024-12-23 20:21] VITALS: BP 121/80; PULSE 109; RESP 18; TEMP 98.9; O2SAT 97
[2024-12-23] MEDS: DOCUSATE SODIUM 100 MG CAPSULE PO SCH (20:28)
[2024-12-23] MEDS: LORazepam 2 MG TABLET PO PRN (20:28)
[2024-12-23] MEDS: 1: MAGNESIUM SULFATE 2 GM, MVI, ADULT NO.1 WITH VIT K 10 ML, THIAMINE 100 MG, FOLIC ACID IV SCH (20:53)
[2024-12-23 21:42] VITALS: BP 102/53; PULSE 112; RESP 18; TEMP 98.5; O2SAT 95
[2024-12-23 22:53] VITALS: BP 100/61; PULSE 108; RESP 18; O2SAT 95
[2024-12-23 23:50] VITALS: BP 109/65; PULSE 101; RESP 18; TEMP 98.6; O2SAT 95
[2024-12-24] MEDS ORDERED: HEPARIN SODIUM,PORCINE 5,000 UNITS/ML VIAL SQ SCH
[2024-12-24] MEDS: HEPARIN SODIUM,PORCINE 5,000 UNITS/ML VIAL SQ SCH (00:35)
[2024-12-24 04:10] VITALS: BP 118/61; PULSE 103; RESP 18; TEMP 97.9; O2SAT 96
[2024-12-24] MEDS: ONDANSETRON HCL 4 MG/2 ML VIAL IVP PRN (06:47)
[2024-12-24 07:47] VITALS: BP 131/72; PULSE 90; RESP 18; TEMP 98.4; O2SAT 97
[2024-12-24] MEDS: PANTOPRAZOLE SODIUM 40 MG/VIAL IVP SCH (08:44)
[2024-12-24] MEDS: LORazepam 2 MG TABLET PO SCH (08:45)
[2024-12-24] MEDS: LevETIRAcetam 500 MG TABLET PO SCH (08:45)
[2024-12-24] MEDS ORDERED: SODIUM CHLORIDE 0.9% 1,000 ML ONE (08:49)
[2024-12-24 10:55] LABS: ALANINE AMINOTRANSFERASE 27 U/L (12-78); ALBUMIN 3.3 g/dL (3.4-5.0); ALKALINE PHOSPHATASE 75 U/L (46-116); ANION GAP 7 mmol/L (8-16); ASPARTATE AMINOTRANSFERASE 32 U/L (15-37); BILIRUBIN,TOTAL 0.5 mg/dL (0.1-1.0); CALCIUM, TOTAL 8.8 mg/dL (8.8-10.5); CARBON DIOXIDE 30 mmol/L (22-29); CHLORIDE 101 mmol/L (98-107); CREATININE 0.72 mg/dL (0.60-1.30); GLOMERULAR FILTR. RATE CALC > 60 mL/min (>60); GLUCOSE,RANDOM 95 mg/dL (70-110); POTASSIUM 4.2 mmol/L (3.5-5.1); SODIUM SERUM 138 mmol/L (136-145); TOTAL PROTEIN, SERUM 7.2 g/dL (6.4-8.2); UREA NITROGEN, BLOOD 5 mg/dL (7-18)
[2024-12-24] MEDS: LORazepam 2 MG TABLET PO PRN (11:09)
[2024-12-24 11:30] VITALS: BP 126/63; PULSE 79; RESP 20; TEMP 98.2; O2SAT 98
[2024-12-24] MEDS: QUEtiapine FUMARATE 25 MG TABLET PO SCH (12:30)
[2024-12-24 15:15] VITALS: BP 120/72; PULSE 82; RESP 18; TEMP 97.7; O2SAT 97
[2024-12-24 16:33] VITALS: BP 120/84; PULSE 75; RESP 18; TEMP 98; O2SAT 97
[2024-12-24 19:53] VITALS: BP 112/55; PULSE 83; RESP 19; TEMP 98.1; O2SAT 98
[2024-12-24] MEDS: ZOLPIDEM TARTRATE 5 MG TABLET PO PRN (20:37)
[2024-12-25] VITALS (7 sets, daily range): BP systolic 109–125; BP diastolic 54–69; PULSE 63–81; RESP 16–19; TEMP 97.9–98.9; O2SAT 96–99
[2024-12-25 06:47] LABS: BASOPHILS % (AUTO) 0.6 % (0.0-2.0); EOSINOPHILS % (AUTO) 4.7 % (1.0-6.0); HEMATOCRIT 35.1 % (41-53); HEMOGLOBIN 11.8 g/dL (13.5-17.5); LYMPHOCYTES # (AUTO) 1.6 K/uL (1.0-4.8); LYMPHOCYTES % (AUTO) 43.4 % (22.0-44.0); MEAN CORPUSCULAR HEMOGLOBIN 31.2 pg (26.0-34.0); MEAN CORPUSCULAR HGB CONC 33.6 G/dL (31.0-37.0); MEAN CORPUSCULAR VOLUME 93 fL (80-100); MONOCYTES # (AUTO) 0.3 K/uL (0.1-1.0); MONOCYTES % (AUTO) 7.5 % (2.0-9.0); NEUTROPHILS # (AUTO) 1.6 K/uL (1.8-7.7); NEUTROPHILS % (AUTO) 43.8 % (40.0-70.0); PLATELET COUNT (AUTO) 201 K/uL (150-450); RED BLOOD CELL COUNT(AUTO) 3.78 MIL/uL (4.50-5.90); RED CELL DISTRIBUTION WIDTH 17.1 % (11.5-14.5); WHITE BLOOD COUNT (AUTO) 3.6 K/uL (4.5-11.0)
[2024-12-25] MEDS ORDERED: SODIUM CHLORIDE 0.9% 1,000 ML ONE (10:02)
[2024-12-25] MEDS: ACETAMINOPHEN 325 MG TABLET PO PRN (10:30)
[2024-12-26] VITALS (7 sets, daily range): BP systolic 98–128; BP diastolic 52–67; PULSE 65–77; RESP 17–20; TEMP 97.7–98.2; O2SAT 96–100
[2024-12-26 07:20] LABS: BASOPHILS % (AUTO) 0.6 % (0.0-2.0); EOSINOPHILS % (AUTO) 5.5 % (1.0-6.0); HEMATOCRIT 33.5 % (41-53); HEMOGLOBIN 11.2 g/dL (13.5-17.5); LYMPHOCYTES % (AUTO) 32.9 % (22.0-44.0); MEAN CORPUSCULAR HEMOGLOBIN 31.4 pg (26.0-34.0); MEAN CORPUSCULAR HGB CONC 33.5 G/dL (31.0-37.0); MEAN CORPUSCULAR VOLUME 94 fL (80-100); MONOCYTES # (AUTO) 0.2 K/uL (0.1-1.0); NEUTROPHILS # (AUTO) 1.6 K/uL (1.8-7.7); PLATELET COUNT (AUTO) 187 K/uL (150-450); RED BLOOD CELL COUNT(AUTO) 3.57 MIL/uL (4.50-5.90); RED CELL DISTRIBUTION WIDTH 16.9 % (11.5-14.5)
[2024-12-26 07:39] LABS: ANION GAP 3 mmol/L (8-16); CALCIUM, TOTAL 8.3 mg/dL (8.8-10.5); CARBON DIOXIDE 30 mmol/L (22-29); CHLORIDE 105 mmol/L (98-107); CREATININE 0.68 mg/dL (0.60-1.30); GLOMERULAR FILTR. RATE CALC > 60 mL/min (>60); GLUCOSE,RANDOM 90 mg/dL (70-110); POTASSIUM 3.9 mmol/L (3.5-5.1); SODIUM SERUM 138 mmol/L (136-145); UREA NITROGEN, BLOOD 3 mg/dL (7-18)
[2024-12-26] MEDS: LORazepam 1 MG TABLET PO SCH (08:15)
[2024-12-26] MEDS: LORazepam 1 MG TABLET PO PRN (09:34)
[2024-12-26] MEDS ORDERED: SODIUM CHLORIDE 0.9% 1,000 ML ONE (15:13)
[2024-12-27] VITALS: BP 108/45; PULSE 62; RESP 18; TEMP 98.2; O2SAT 96
[2024-12-27 04:00] VITALS: BP 113/55; PULSE 57; RESP 18; TEMP 98.1; O2SAT 95
[2024-12-27 06:58] LABS: BASOPHILS % (AUTO) 0.5 % (0.0-2.0); EOSINOPHILS % (AUTO) 4.4 % (1.0-6.0); HEMATOCRIT 32.4 % (41-53); HEMOGLOBIN 10.9 g/dL (13.5-17.5); LYMPHOCYTES # (AUTO) 1.3 K/uL (1.0-4.8); LYMPHOCYTES % (AUTO) 30.4 % (22.0-44.0); MEAN CORPUSCULAR HEMOGLOBIN 31.8 pg (26.0-34.0); MEAN CORPUSCULAR HGB CONC 33.8 G/dL (31.0-37.0); MEAN CORPUSCULAR VOLUME 94 fL (80-100); MONOCYTES # (AUTO) 0.3 K/uL (0.1-1.0); MONOCYTES % (AUTO) 6.3 % (2.0-9.0); NEUTROPHILS # (AUTO) 2.5 K/uL (1.8-7.7); NEUTROPHILS % (AUTO) 58.4 % (40.0-70.0); PLATELET COUNT (AUTO) 181 K/uL (150-450); RED BLOOD CELL COUNT(AUTO) 3.44 MIL/uL (4.50-5.90); RED CELL DISTRIBUTION WIDTH 16.6 % (11.5-14.5); WHITE BLOOD COUNT (AUTO) 4.4 K/uL (4.5-11.0)
[2024-12-27 07:08] LABS: ANION GAP 6 mmol/L (8-16); CALCIUM, TOTAL 8.5 mg/dL (8.8-10.5); CARBON DIOXIDE 28 mmol/L (22-29); CHLORIDE 105 mmol/L (98-107); CREATININE 0.74 mg/dL (0.60-1.30); GLOMERULAR FILTR. RATE CALC > 60 mL/min (>60); GLUCOSE,RANDOM 90 mg/dL (70-110); POTASSIUM 3.7 mmol/L (3.5-5.1); SODIUM SERUM 139 mmol/L (136-145); UREA NITROGEN, BLOOD 5 mg/dL (7-18)
[2024-12-27 07:17] VITALS: BP 119/47; PULSE 65; RESP 19; TEMP 98.1; O2SAT 97
[2024-12-27] MEDS: LORazepam 1 MG TABLET PO PRN (08:22)
[2024-12-27 08:30] VITALS: BP 119/54; PULSE 62; RESP 16; TEMP 97.8; O2SAT 97
[2024-12-27 11:24] VITALS: BP 117/50; PULSE 86; RESP 18; TEMP 98.4; O2SAT 97
[2024-12-27] MEDS: LORazepam 2 MG/ML VIAL IVP PRN (11:36)
[2024-12-27] MEDS ORDERED: LEVE500T8 PO (14:13)
[2024-12-27] MEDS ORDERED: FOLI0.4T6 PO (14:13)
[2024-12-27] MEDS ORDERED: PANT-31 PO (14:13)
[2024-12-27] MEDS ORDERED: QUET25TA36 PO (14:13)
[2024-12-27] MEDS ORDERED: THIA100T80 PO (14:13)
[2024-12-27] MEDS ORDERED: MULT-1203 PO (14:13)
[2024-12-27] MEDS ORDERED: CHLO25CA6 PO (14:13)
[2024-12-27] MEDS: ChlordiazePOXIDE HCL 25 MG CAPSULE PO ONE (14:43)
== END 2024-12-27 15:00 | disposition home or self-care (01) | DRG 53 ==
LOC: EMS 14:35 → EDH 18:58 → MERGE 18:58 → 5S 19:26
PROVIDERS: ADMIT Hospitalist; ATTEND Hospitalist
PROC: GZ56ZZZ Individual Psychotherapy, Supportive (ICD-10-PCS; principal; 2024-12-24)
DX: G40.89 Other seizures (principal); F29 Unspecified psychosis not due to a substance or known physiological condition; F10.139 Alcohol abuse with withdrawal, unspecified; D64.9 Anemia, unspecified; I10 Essential (primary) hypertension; Z59.00 Homelessness unspecified
CPT/HCPCS: 70450; 71045; 72125; 74176; 80048; 80053; 80076; 80307; 81001; 82550; 83690; 83735; 83880; 84484; 85025; 93005; 96365; 96375; 96376; 99285; G0480; J0712; J1644; J1885; J2060; J2270; J2405; J2470; J3411; J3475; J3490; J7030; J7050; J7060; 36415-L1; 36415-TC